=== PATIENT | female | born 1990 | race Caucasian/White ===

== ENCOUNTER 2017-04-20 05:00 | Inpatient (IN) ==
[2017-04-21] MEDS ORDERED: ACETAMINOPHEN 500 MG TABLET PO PRN ×2 (06:21→10:19)
[2017-04-21] MEDS ORDERED: LIDOCAINE 1% (10mg/ml) 2mL INJ PF SDV ID PRN (06:21)
[2017-04-21] MEDS ORDERED: OXYTOCIN DRIP 30 UNIT/500 ML ML IV PRN (06:21)
[2017-04-21] MEDS ORDERED: CARBOPROST 250 MCG/ML INJECTION IM PRN (06:21)
[2017-04-21] MEDS ORDERED: CALCIUM CARBONATE Chewable 500mg TABLET PO PRN ×2 (06:21→10:19)
[2017-04-21] MEDS ORDERED: LR 1,000 ML IV PRN (06:21)
[2017-04-21] MEDS ORDERED: METHYLERGONOVINE 0.2 MG/ML INJECTION IM PRN (06:21)
[2017-04-21] MEDS ORDERED: MAG-AL + SIM ORAL LIQUID 30ml PO PRN ×2 (06:21→10:19)
[2017-04-21] MEDS ORDERED: D5LR 1,000 ML IV PRN (06:21)
[2017-04-21 06:48] VITALS: BMI 28.0
[2017-04-21] MEDS ORDERED: ROPIVACAINE 1% 10MG/ML INJ 200 MG, SUFentanil 50 MCG in NS 100 ML EPI PRN (08:20)
[2017-04-21] MEDS ORDERED: METHYLERGONOVINE 0.2 MG/ML INJECTION IM ONE (09:33)
[2017-04-21] MEDS ORDERED: DiphenhydrAMINE 25 MG CAPSULE PO PRN (10:19)
[2017-04-21] MEDS ORDERED: HYDROCORTISONE 2.5% CREAM 30gm RECTALLY PRN (10:19)
[2017-04-21] MEDS ORDERED: SALINE FLUSH 10ml SYRINGE IV PRN (10:19)
[2017-04-21] MEDS ORDERED: OXYTOCIN DRIP 30 UNIT/500 ML ML IV SCH (10:30)
[2017-04-21] MEDS: IBUPROFEN 800 MG TABLET PO PRN ×2 (12:17→20:18)
[2017-04-21] MEDS: HYDROCODONE/APAP 5mg/325mg TABLET PO PRN ×3 (12:17→18:42)
[2017-04-21] MEDS ORDERED: CARBOPROST 250 MCG/ML INJECTION IM ONE (12:19)
[2017-04-21] MEDS ORDERED: ONDANSETRON 4 MG/2 ML INJECTION IVP ONE (12:19)
--- NOTE | 2017-04-21 15:28 | Labor and Delivery Note ---
DATE 04/21/2017 Patient is a 26-year old G2, P1 who presented to the hospital at 39 weeks 6 days estimated gestational age for Pitocin induction for term intrauterine with advanced dilation. She was 4 cm on arrival. She advanced through dilation to complete over the course of approximately just over two hours of Pitocin. heart tones were reassuring throughout all of her labor process. She did deliver precipitously by spontaneous vaginal delivery. There was a nuchal cord x1 that was fairly loose and was reduced. Delivery was otherwise uneventful. Baby was placed on the mother's abdomen for stimulation and resuscitation. Apgars were 8/9. After the cord pulsations ceased, cord was doubly clamped and cut by the patient's . Placenta delivered by manual expression shortly thereafter at which time the patient did begin to have a significant increase in bleeding and her uterus was found to be boggy. Third stage of labor was actively managed with the institution of Pitocin IV, fundal massage and bimanual massage. MEU was performed and there was a small amount of remaining amniotic membrane. Aside from that, there was only clot remaining in the uterus. Uterus did continue to have difficulty maintaining tone. One dose of Methergine was given which helped but did not completely rectify the situation. One dose of Hemabate was then given and the bleeding then slowed significantly. We did continue the Pitocin bolus for a second 20 minutes and both mother and baby are doing well at the time of this dictation. [facility]
[2017-04-21] MEDS ORDERED: ROPIVACAINE 0.2% 2MG/ML INJ 40 MG, SUFentanil 50 MCG in NS 100 ML INFIL ONE (16:05)
--- NOTE | 2017-04-21 16:12 | Anesthesia Preoperative Report ---
Anesthesia Epidural/Spinal Rec - Date and Time Date: 04/21/17 Procedure: Labor Epidural Plan: Epidural - Vital Signs Vital Signs: Temperature 98.0 F 04/21/17 06:48 Pulse Rate 107 H 04/21/17 06:48 Respiratory Rate 20 04/21/17 06:48 Blood Pressure 123/82 04/21/17 06:48 /Para: P:1 - Medictaions & Allergies Inpatient Medications: Current Medications Acetaminophen (Tylenol) 500 - 1,000 mg PO Q4HR PRN PRN Reason: Pain Hydrocodone Bitart/Acetaminophen ([place] 5/325) 1 - 2 tab PO Q4H PRN PRN Reason: Pain Last Admin: 04/21/17 12:17 Dose: 1 tab Al Hydroxide/Mg Hydroxide (Maalox Plus) 30 ml PO Q4H PRN PRN Reason: Indigestion Calcium Carbonate (Tums) 500 - 1,000 mg PO Q2H PRN Diphenhydramine HCl (Benadryl) 25 - 50 mg PO Q6H PRN PRN Reason: Itching Docusate Calcium (Surfak) 240 mg PO DAILY SOURAV Hydrocortisone (Anusol-Hc 2.5% Cream) 1 applic RECTALLY PRN PRN PRN Reason: Hemorrhoids Ibuprofen (Motrin) 800 mg PO Q8H PRN PRN Reason: Pain Last Admin: 04/21/17 12:17 Dose: 800 mg Magnesium Hydroxide (Mom) 30 ml PO DAILY PRN PRN Reason: Constipation Phenylephrine HCl (Anusol Supp) 1 supp [place] PRN PRN Sodium Chloride (Iv Flush) 10 - 80 ml IV PRN PRN PRN Reason: Flushing Allergies/Adverse Reactions: Allergies Allergy/AdvReac Type Severity Reaction Status Date / Time No Known Allergies Allergy Unverified 06/21/15 11:58 - Home Medications Home Medications: Home Medications Medication Instructions Recorded Confirmed Type Pnv95/Ferrous Fumarate/FA 1 tab PO PRN #90 tab 06/21/15 History [ Tablet] Ferrous Sulfate (Iron Supplement) 1 tab PO DAILY #30 tab 08/18/15 03/29/17 History Zofran 03/29/17 History - Medical History Cardiovascular: DENIES: Hypertension Gastrointestional: DENIES: Gastroesophageal Reflux Disease Other History: Reports: Now - Surgical History HEENT Surgeries: Reports: Other (wisdom tooth extraction) Surgery/Treatment: REPORT: Other (occasional UTI) Reproductive Surgery/Treatment: DENIES: Section Anesthesia Reactions: None Hx Family Anesthesia Reaction: No History of Motion Sickness: No - Social History Smoking Status: Never smoker Second Hand Exposure: No Substance Use Type: does not use - Pertinent Findings Lab Data: CBC and BMP 04/21/17 06:30 - Physical Exam Respiratory Exam: lungs clear, bilateral breath sounds equal Cardiovascular Exam: regular rate and rhythm - Airway Assessment Mallampati Score: II TMD: 3 Fingerbreadths Neck Extension: good Overall Assessment: no airway concerns - ASA ASA Score: 2 - Discussion Discussion: Discussed risks/options/alternatives of anesthesia and questions answered. Patient consents. Nursing pain assessment noted. Anesthesia Discussion: spouse Attestation Statement: Prior to the delivery of any anesthetic medication, I examined the patient, developed the plan, obtained the patient's consent and discussed the risk and benefits of the procedure with the patient/guardian.
[2017-04-22 02:32] VITALS: TEMP 97.8
[2017-04-22] MEDS: IBUPROFEN 800 MG TABLET PO PRN (07:08)
[2017-04-22] MEDS: HYDROCODONE/APAP 5mg/325mg TABLET PO PRN (07:09)
--- NOTE | 2017-04-22 07:26 | OB/GYN Progress Note ---
OB-PP Progress Note - General PPD1 Maternal Group B Strep: Negative - Subjective Date: 04/22/17 Lochia: Minimal Pain: controlled Voiding: voiding Nausea or Vomiting Present: No - Objective Vital Signs: Last Vital Signs Temp 97.8 F 04/22/17 02:25 Pulse 59 L 04/22/17 02:25 Resp 16 04/22/17 02:25 BP 108/65 04/22/17 02:25 Urine Output: good General: alert and oriented Abdomen: fundus firm, non-tender Extremities: non-tender Edema: none - Assessment Assessment: SP, - Plan Plan: routine care, discharge home
[2017-04-22 08:49] VITALS: BP 131/70; PULSE 100; RESP 20; O2SAT 99
[2017-04-22] MEDS ORDERED: DOCUSATE CALCIUM 240 MG CAPSULE PO SCH (09:00)
--- NOTE | 2017-04-22 10:02 | Anesthesia Postoperative Note ---
- Date and Time Date: 04/22/17 Time: 10:02 - Status Patient Participated in Evaluation: Patient Participated in Person Vital Signs: Temperature 97.8 F 04/22/17 08:48 Pulse Rate 100 04/22/17 08:48 Respiratory Rate 20 04/22/17 08:48 Blood Pressure 131/70 04/22/17 08:48 Pulse Oximetry 99 04/22/17 08:48 Respiratory Function: Airway Patent Cardiovascular Function: Regular Pulse Mental Status: Alert and Oriented Pain Intensity: 0 Hydration: Taking PO Fluids Complications During Recover: None Apparent - Follow-Up Instructions Instructions: Per Surgeon
== END 2017-04-22 14:40 | disposition home or self-care (01) | DRG 774 ==
LOC: MC 04-21 06:16
PROVIDERS: ADMIT Family Medicine; ATTEND Family Medicine